=== PATIENT | female | born 1985 | race Caucasian/White ===

== ENCOUNTER → 2017-08-31 | Outpatient (CLI) | payer OTHER ==
[~2017-08-31] MED LIST: ALPR0.25 PO; CETI10TA24 PO; DOCU240C31 PO; IBUP-1222 PO; OXYC-302 PO
[2017-08-31 09:14] LABS: BASOPHILS # (AUTO) 0.04 x10^3/uL (0-0.1); BASOPHILS % (AUTO) 1 % (0-1); EOSINOPHILS # (AUTO) 0.07 x10^3/uL (0-0.4); EOSINOPHILS % (AUTO) 1 % (1-7); LYMPHOCYTES # (AUTO) 1.69 x10^3/uL (1-3.4); LYMPHOCYTES % (AUTO) 30 % (22-44); MD NO; MEAN CORPUSCULAR HEMOGLOBIN 34.5 pg (27.0-34.8); MEAN CORPUSCULAR HGB CONC 34.2 g/dL (32.4-35.8); MEAN CORPUSCULAR VOLUME 101.2 fL (80-100); MEAN PLATELET VOLUME 7.4 fL (7.4-10.4); MONOCYTES # (AUTO) 0.54 x10^3/uL (0.2-0.8); MONOCYTES % (AUTO) 10 % (2-9); NEUTROPHILS # (AUTO) 3.27 x10^3/uL (1.8-6.8); NEUTROPHILS % (AUTO) 58 % (42-75); PLATELET COUNT 244 x10^3/uL (130-400); RED BLOOD COUNT 4.41 x10^6/uL (3.82-5.3); RED CELL DISTRIBUTION WIDTH 12.9 % (9.6-15.2)
[2017-08-31 09:18] LABS: MICROSCOPIC AUTO
[2017-08-31 09:25] LABS: CULTURE INDICATED? YES
== END | disposition home or self-care (01) ==
LOC: STAR 08:28
PROVIDERS: ATTEND Specialist
DX: Z01.818 Encounter for other preprocedural examination (principal); N81.6 Rectocele; N81.4 Uterovaginal prolapse, unspecified; Z79.899 Other long term (current) drug therapy
CPT/HCPCS: 36415; 81001; 84703; 85025; 87077; 87086; 87186

== ENCOUNTER 2017-09-11 10:10 | Inpatient (IN) | payer OTHER ==
[~2017-09-11] VITALS: Ht 167.6 cm; Wt 60.0 kg
[2017-09-11] MEDS ORDERED: LACTATED RINGERS 1,000 ML IV SCH (10:46)
[2017-09-11] MEDS ORDERED: ONDANSETRON 2MG/ML, 2ML IVPush PRN (11:00)
[2017-09-11] MEDS ORDERED: ALBUTEROL SULFATE 2.5 MG/3 ML NPPB PRN (11:00)
[2017-09-11] MEDS ORDERED: FENTANYL PF 100 MCG/2ML IV PRN (11:00)
[2017-09-11] MEDS ORDERED: LABETALOL 5MG/ML, 20ML IV PRN (11:00)
[2017-09-11] MEDS ORDERED: OXYcodone 5 MG/5 ML ORAL.SOL UDC PO PRN (11:00)
[2017-09-11] MEDS ORDERED: EPHEDRINE 50 MG/ML, 1ML IVPush PRN (11:00)
[2017-09-11] MEDS ORDERED: PROMETHAZINE 25 MG/ML, 1ML IV PRN (11:00)
[2017-09-11] MEDS ORDERED: ACETAMINOPHEN 325 MG TABLET PO PRN (11:00)
[2017-09-11] MEDS ORDERED: METOPROLOL 1 MG/ML, 5ML IV PRN (11:00)
[2017-09-11] MEDS ORDERED: hydrALAzine 20 MG/ML, 1ML IV PRN (11:00)
[2017-09-11] MEDS ORDERED: DIAZEPAM 5 MG/ML, 2ML IVPush PRN (11:00)
[2017-09-11 11:19] VITALS: BP 128/92
[2017-09-11] MEDS ORDERED: SCOPOLAMINE PATCH, 1.5MG PATCH.TD72 TD ONE ×2 (11:48→12:00)
[2017-09-11] MEDS ORDERED: GENTAMICIN 80 MG/2 ML ONE (11:52)
[2017-09-11] MEDS ORDERED: VANCOMYCIN 500 MG ONE (11:52)
[2017-09-11] MEDS ORDERED: FLUORESCEIN SODIUM 500 MG/5 ML ONE (11:52)
[2017-09-11] MEDS ORDERED: THROMBIN 5,000 UNIT VIAL TP ONE (11:52)
[2017-09-11] MEDS ORDERED: BUPIVACAINE/PF 0.25% ONE (11:52)
[2017-09-11] MEDS ORDERED: EPINEPHRINE 1 MG/ML, 1ML ONE (11:53)
[2017-09-11] MEDS ORDERED: FENTANYL PF 250 MCG/5ML ONE ×2 (12:29)
[2017-09-11] MEDS ORDERED: MIDAZOLAM 1 MG/ML, 2ML ONE ×2 (12:29)
[2017-09-11] MEDS ORDERED: GLYCOPYRROLATE 0.2MG/1ML, 5ML ONE (12:40)
[2017-09-11] MEDS ORDERED: NEOSTIGMINE 1 MG/ML, 10ML ONE (12:40)
[2017-09-11] MEDS ORDERED: ONDANSETRON 2MG/ML, 2ML ONE (12:48)
[2017-09-11] MEDS ORDERED: PROPOFOL 10 MG/ML, 20ML ONE (12:48)
[2017-09-11] MEDS ORDERED: DEXAMETHASONE 4 MG/ML, 1ML ONE ×2 (12:48)
[2017-09-11] MEDS ORDERED: CEFAZOLIN 1,000 MG ONE (12:48)
[2017-09-11] MEDS ORDERED: ROCURONIUM 10 MG/ML,10ML ONE (12:48)
[2017-09-11] MEDS ORDERED: AMPICILLIN 1 GM ONE ×2 (14:08→14:16)
[2017-09-11] MEDS ORDERED: KETOROLAC 30 MG/1 ML ONE (15:09)
[2017-09-11] MEDS ORDERED: ESTROGENS CONJUGATED VAG CRM 0.625MG/1G, 30GM ONE (15:13)
[2017-09-11] MEDS ORDERED: OXYcodone 5 MG/5 ML ORAL.SOL UDC ONE (15:37)
[2017-09-11] MEDS ORDERED: HYDROmorphone 2 MG/ML, 1ML ONE (15:37)
[2017-09-11] MEDS ORDERED: ACETAMINOPHEN 325 MG TABLET ONE (15:37)
[2017-09-11] MEDS ORDERED: ACETAMINOPHEN 650 MG/20.3 ML UDC ONE (15:37)
[2017-09-11] MEDS: HYDROmorphone 1 MG/ML, 1ML IV PRN ×4 (15:43→16:15)
[2017-09-11 15:48] LABS: MICROSCOPIC INDICATED
[2017-09-11] MEDS ORDERED: MEPERIDINE/PF 50 MG/ML ONE (15:52)
[2017-09-11 15:53] LABS: CULTURE INDICATED? ORDERED BY PHYSICIAN
[2017-09-11] MEDS: MEPERIDINE/PF 25MG/0.5ML IVPush PRN ×2 (15:56→16:11)
[2017-09-11 17:07] VITALS: BP 119/81
[2017-09-11] MEDS ORDERED: HYDROmorphone 2 MG/ML, 1ML IV PRN (17:30)
[2017-09-11] MEDS ORDERED: MEPERIDINE/PF 100 MG/ML IM PRN (17:30)
[2017-09-11] MEDS ORDERED: ONDANSETRON 2MG/ML, 2ML IV PRN (17:30)
[2017-09-11] MEDS: POTASSIUM CHLORIDE IV SCH (18:27)
[2017-09-11] MEDS: [UNRECOGNIZED DRUG - OTHER] IV SCH (18:27)
[2017-09-11 19:33] VITALS: BP 125/81
[2017-09-11] MEDS: OXYcodone 5 MG/5 ML ORAL.SOL UDC PO PRN ×2 (19:37→23:55)
[2017-09-11] MEDS: DOCUSATE 100 MG CAPSULE PO SCH (20:31)
[2017-09-11] MEDS: AMPICILLIN 1 GM in SODIUM CHLORIDE 0.9% 50 ML IV SCH (20:31)
[2017-09-11] MEDS: KETOROLAC 30 MG/1 ML IV SCH (20:31)
[2017-09-11] MEDS ORDERED: ZOLPIDEM 5MG TABLET PO PRN (21:00)
[2017-09-12 00:29] VITALS: BP 102/60
[2017-09-12] MEDS: AMPICILLIN 1 GM in SODIUM CHLORIDE 0.9% 50 ML IV SCH ×2 (03:50→09:07)
[2017-09-12] MEDS: OXYcodone 5 MG/5 ML ORAL.SOL UDC PO PRN ×2 (03:50→08:08)
[2017-09-12] MEDS: KETOROLAC 30 MG/1 ML IV SCH ×2 (03:50→11:03)
[2017-09-12 03:55] VITALS: BP 118/65
[2017-09-12 05:33] LABS: ALBUMIN 2.8 g/dL (3.4-5.0); ANION GAP 9 mmol/L (5-15); CALCIUM 7.3 mg/dL (8.5-10.1); CHLORIDE 103 mmol/L (98-107)
[2017-09-12 05:38] LABS: ALANINE AMINOTRANSFERASE 28 U/L (12-78); ALKALINE PHOSPHATASE 40 U/L (45-117); BILIRUBIN,TOTAL 0.8 mg/dL (0.2-1.0); TOTAL PROTEIN 5.6 g/dL (6.4-8.2)
[2017-09-12 06:43] VITALS: BP 118/76
[2017-09-12] MEDS: POTASSIUM CHLORIDE IV SCH ×4 (07:22→20:34)
[2017-09-12] MEDS: [UNRECOGNIZED DRUG - OTHER] IV SCH ×4 (07:22→20:34)
[2017-09-12] MEDS: DOCUSATE 100 MG CAPSULE PO SCH ×2 (08:05→21:02)
[2017-09-12] MEDS ORDERED: CALCIUM GLUCONATE 4.6 MEQ in SODIUM CHLORIDE 0.9% 100 ML IV ONE (10:30)
[2017-09-12] MEDS ORDERED: CALCIUM GLUCONATE 4.6 MEQ/10 ML IVPush ONE (10:30)
[2017-09-12] MEDS ORDERED: CIPROFLOXACIN/PMX 400MG/200ML 200 ML IVPB SCH (11:00)
[2017-09-12] MEDS: HYDROmorphone 2MG TABLET PO PRN ×4 (11:23→22:19)
[2017-09-12 14:14] VITALS: BP 103/60
[2017-09-12] MEDS: IBUPROFEN 600 MG TABLET PO SCH ×2 (16:00→21:02)
[2017-09-12 20:07] VITALS: BP 103/69
[2017-09-12] MEDS ORDERED: IBUPROFEN 600 MG TABLET PO SCH (21:00)
[2017-09-12] MEDS: CIPROFLOXACIN 500 MG TABLET PO SCH (21:02)
[2017-09-13 01:44] VITALS: BP 97/57
[2017-09-13] MEDS: HYDROmorphone 2MG TABLET PO PRN ×2 (01:47→05:44)
[2017-09-13] MEDS: [UNRECOGNIZED DRUG - OTHER] IV SCH ×2 (03:20→09:24)
[2017-09-13] MEDS: POTASSIUM CHLORIDE IV SCH ×2 (03:20→09:24)
[2017-09-13] MEDS: IBUPROFEN 600 MG TABLET PO SCH ×2 (05:44→11:00)
[2017-09-13] MEDS: DOCUSATE 100 MG CAPSULE PO SCH (08:59)
[2017-09-13] MEDS: CIPROFLOXACIN 500 MG TABLET PO SCH (08:59)
[2017-09-13] MEDS ORDERED: HYDR2TAB29 PO (10:20)
[2017-09-13] MEDS ORDERED: CIPR500T87 PO (10:21)
[2017-09-13] MEDS ORDERED: IBUP-1222 PO (10:23)
[2017-09-13] MEDS ORDERED: DOCU100C33 PO (10:50)
== END 2017-09-13 11:05 | disposition home or self-care (01) | DRG 742 ==
LOC: OUT 10:10 → 4NOR 16:49 → OUT 20:10 → 4NOR 20:11 → DCLOUNGE 09-13 11:00
PROVIDERS: ADMIT Specialist; ATTEND Specialist
PROC: 0UT70ZZ Resection of Bilateral Fallopian Tubes, Open Approach (ICD-10-PCS; 2017-09-11)
PROC: 0USG0ZZ Reposition Vagina, Open Approach (ICD-10-PCS; 2017-09-11)
PROC: 0T9B70Z Drainage of Bladder with Drainage Device, Via Natural or Artificial Opening (ICD-10-PCS; 2017-09-11)
PROC: 0JQC0ZZ Repair Pelvic Region Subcutaneous Tissue and Fascia, Open Approach (ICD-10-PCS; 2017-09-11)
PROC: 0UT97ZZ Resection of Uterus, Via Natural or Artificial Opening (ICD-10-PCS; principal; 2017-09-11 12:30)
PROC: 0JQC0ZZ Repair Pelvic Region Subcutaneous Tissue and Fascia, Open Approach (ICD-10-PCS; 2017-09-11 12:30)
DX: N81.4 Uterovaginal prolapse, unspecified (principal); N39.0 Urinary tract infection, site not specified; N89.5 Stricture and atresia of vagina; Z82.49 Family history of ischemic heart disease and other diseases of the circulatory system
CPT/HCPCS: 36415; 80053; 81001; 85014; 85018; 87086; 87186; 88307; J0171; J0290; J0690; J0744; J1100; J1170; J1885; J2175; J2250; J2405; J2704; J2710; J3010; J3370; J3480; J3490; J0610; J1580; J7120; J7121